=== PATIENT | female | born 1955 | race Caucasian/White ===

== ENCOUNTER → 2024-12-24 10:46 | Outpatient (REF) | payer MEDICARE, BC, SELFPAY | LOC: WDC 10:46 | PROVIDERS: ATTENDING PHYSICIAN Student in an Organized Health Care Education/Training Program | DX: Z12.39 Encounter for other screening for malignant neoplasm of breast (principal); Z12.31 Encounter for screening mammogram for malignant neoplasm of breast | CPT/HCPCS: 77063; 77067 ==